=== PATIENT | female | born 1940 | race Caucasian/White ===

== ENCOUNTER 2022-02-16 12:30 | Inpatient (IN) | payer MEDICARE, BC ==
[2022-02-16] MEDS ORDERED: Sodium Chloride 0.9% 10 ML Syringe FLUSH PRN (13:16)
[2022-02-16] MEDS ORDERED: Aspirin 81 MG Tab.Chew PO ONE (13:16)
[2022-02-16] MEDS ORDERED: Acetaminophen 325 MG Tab PO PRN (15:26)
[2022-02-16] MEDS ORDERED: Ondansetron 4 MG Tab.DIS PO PRN (15:26)
[2022-02-16] MEDS ORDERED: oxyCODONE 5 MG Tab PO PRN (15:26)
[2022-02-16] MEDS ORDERED: Sodium Chloride 0.9% 250 ML IV SCH (16:00)
[2022-02-16] MEDS: Pantoprazole 40 MG Vial IVPUSH SCH (17:27)
[2022-02-16] MEDS: Sodium Chloride 0.9% 1,000 ML IV SCH (20:33)
[2022-02-17] MEDS: Pantoprazole 40 MG Vial IVPUSH SCH ×2 (03:53→16:01)
[2022-02-17] MEDS: Sodium Chloride 0.9% 1,000 ML IV SCH ×2 (08:35→20:55)
[2022-02-17] MEDS ORDERED: Isosorbide Mononitrate 20 MG Tablet PO SCH (09:00)
[2022-02-17] MEDS: Furosemide 40 MG Tab PO SCH (09:32)
[2022-02-17] MEDS: Levothyroxine 25 MCG Tab PO SCH (09:32)
[2022-02-17] MEDS: Losartan 50 MG Tab PO SCH (09:32)
[2022-02-17] MEDS ORDERED: Sodium Chloride 0.9% 10 ML Syringe FLUSH PRN ×2 (12:33→12:48)
[2022-02-17] MEDS ORDERED: Iopamidol 755 Mg/ML 100 ML Bottle IVPUSH ONE ×2 (12:33→12:48)
[2022-02-17] MEDS ORDERED: Sodium Chloride 0.9% 100 ML IV SCH ×2 (12:45→13:00)
[2022-02-17] MEDS ORDERED: Scopolamine 1.5 MG Transdermal Patch TOP ONE (13:30)
[2022-02-17] MEDS ORDERED: Metoclopramide 10 MG/2 ML SDV IVPUSH ONE (15:00)
[2022-02-17] MEDS: ISOSORBIDE MONONITRATE 20 MG PO SCH (21:27)
[2022-02-18] MEDS: Pantoprazole 40 MG Vial IVPUSH SCH ×2 (04:03→15:03)
[2022-02-18] MEDS: Levothyroxine 25 MCG Tab PO SCH (05:18)
[2022-02-18] MEDS: Potassium Chloride 10 MEQ in Premix Bag 1 BAG IV SCH ×4 (08:06→12:11)
[2022-02-18] MEDS: Furosemide 40 MG Tab PO SCH (08:06)
[2022-02-18] MEDS: Losartan 50 MG Tab PO SCH (08:21)
[2022-02-18] MEDS: ISOSORBIDE MONONITRATE 20 MG PO SCH ×2 (08:29→22:47)
[2022-02-18] MEDS ORDERED: Sodium Chloride 0.9% 1,000 ML IV SCH (09:45)
[2022-02-18] MEDS: Furosemide 20 MG/2 ML VIAL IVPUSH SCH (14:57)
[2022-02-18] MEDS: Metoprolol Succinate 25 MG Tab.ER PO SCH (20:39)
[2022-02-19] MEDS: Pantoprazole 40 MG Vial IVPUSH SCH ×2 (04:38→15:03)
[2022-02-19] MEDS: Levothyroxine 25 MCG Tab PO SCH ×2 (04:38→06:03)
[2022-02-19] MEDS: Furosemide 20 MG/2 ML VIAL IVPUSH SCH ×2 (05:56→15:03)
[2022-02-19] MEDS: Losartan 50 MG Tab PO SCH (08:02)
[2022-02-19] MEDS: ISOSORBIDE MONONITRATE 20 MG PO SCH ×2 (08:05→21:09)
[2022-02-19] MEDS: Metoprolol Succinate 25 MG Tab.ER PO SCH (21:09)
[2022-02-20] MEDS: Pantoprazole 40 MG Vial IVPUSH SCH ×2 (02:12→14:49)
[2022-02-20] MEDS: Furosemide 20 MG/2 ML VIAL IVPUSH SCH ×2 (06:19→14:48)
[2022-02-20] MEDS: Levothyroxine 25 MCG Tab PO SCH (06:19)
[2022-02-20] MEDS: Losartan 50 MG Tab PO SCH (08:39)
[2022-02-20] MEDS: ISOSORBIDE MONONITRATE 20 MG PO SCH ×2 (08:40→21:41)
[2022-02-20] MEDS: Metoprolol Succinate 25 MG Tab.ER PO SCH (21:40)
[2022-02-21] MEDS: Pantoprazole 40 MG Vial IVPUSH SCH (04:46)
[2022-02-21] MEDS: Levothyroxine 25 MCG Tab PO SCH (06:15)
[2022-02-21] MEDS: Furosemide 20 MG/2 ML VIAL IVPUSH SCH (06:15)
[2022-02-21] MEDS: ISOSORBIDE MONONITRATE 20 MG PO SCH (08:35)
[2022-02-21] MEDS: Losartan 50 MG Tab PO SCH (08:35)
[2022-02-21 12:13] VITALS: BP 103/82; PULSE 73
== END 2022-02-21 13:15 | disposition home or self-care (01) | DRG 378 ==
LOC: JD.ED 12:30 → JD.MS 15:22
PROVIDERS: ADMIT Internal Medicine; ATTEND Internal Medicine
PROC: 30233N1 Transfusion of Nonautologous Red Blood Cells into Peripheral Vein, Percutaneous Approach (ICD-10-PCS; principal; 2022-02-16)
DX: K92.2 Gastrointestinal hemorrhage, unspecified (principal); D64.89 Other specified anemias; R07.9 Chest pain, unspecified; I50.22 Chronic systolic (congestive) heart failure; I10 Essential (primary) hypertension; D50.8 Other iron deficiency anemias; R07.89 Other chest pain; N28.9 Disorder of kidney and ureter, unspecified; E78.00 Pure hypercholesterolemia, unspecified; I11.0 Hypertensive heart disease with heart failure; Z91.030 Bee allergy status; Z79.02 Long term (current) use of antithrombotics/antiplatelets; Z66 Do not resuscitate; K21.9 Gastro-esophageal reflux disease without esophagitis; M81.0 Age-related osteoporosis without current pathological fracture; F41.9 Anxiety disorder, unspecified; Z96.649 Presence of unspecified artificial hip joint; E87.6 Hypokalemia; E03.9 Hypothyroidism, unspecified; E78.5 Hyperlipidemia, unspecified; Z90.49 Acquired absence of other specified parts of digestive tract; I25.2 Old myocardial infarction; Z95.5 Presence of coronary angioplasty implant and graft; Z90.710 Acquired absence of both cervix and uterus; Z79.890 Hormone replacement therapy; Z79.899 Other long term (current) drug therapy
CPT/HCPCS: 36415; 71045; 80053; 82607; 82746; 83540; 83880; 84443; 84466; 84484; 85025; 85379; 86850; 86900; 86901; 86922; 93005; 99285; A9270; J3490; 36430; 71275; 71275-26; 81003; 83735; 85014; 85018; 93010; 93306; 97110-GP; 97162-GP; 99223; 99233; 99239; C9113; J1940; J2916; J3480; J7030; J7050; P9016; Q9967

== ENCOUNTER 2022-03-03 13:19 | Emergency (ER) | payer MEDICARE, BC ==
[2022-03-03] MEDS ORDERED: Sodium Chloride 0.9% 10 ML Syringe FLUSH PRN (13:41)
[2022-03-03] MEDS ORDERED: Sodium Chloride 0.9% 1,000 ML IV STA (14:34)
[2022-03-03] MEDS ORDERED: Ondansetron 4 MG Tab.DIS PO ONE (15:42)
[2022-03-03] MEDS ORDERED: Cefdinir 300 MG Cap PO ONE (15:42)
[2022-03-03 16:31] VITALS: BP 132/77; PULSE 66
== END 2022-03-03 16:31 | disposition home or self-care (01) ==
LOC: JD.ED 13:19
DX: N30.00 Acute cystitis without hematuria (principal); R53.1 Weakness; R11.0 Nausea; E78.00 Pure hypercholesterolemia, unspecified; I10 Essential (primary) hypertension; I25.2 Old myocardial infarction; K21.9 Gastro-esophageal reflux disease without esophagitis; Z91.018 Allergy to other foods; Z91.030 Bee allergy status; Z79.02 Long term (current) use of antithrombotics/antiplatelets; Z79.899 Other long term (current) drug therapy
CPT/HCPCS: 36415; 80053; 81001; 84484; 85025; 86140; 87086; 87088; 87186; 93005; 99283; A9270; J3490; J7030

== ENCOUNTER 2022-03-16 09:13 | Day surgery (SDC) | payer MEDICARE, BC ==
[~2022-03-16 09:13] MED LIST: Lactated Ringers 1,000 ML IV SCH; Lidocaine 1%/Sod Bicarbonate in NS 8.4% 1 ML Syringe IDERM PRN; Sodium Chloride 0.9% 10 ML Syringe FLUSH PRN; Sodium Chloride 0.9% 10 ML Syringe FLUSH SCH
[2022-03-16] MEDS ORDERED: Lidocaine 1% 0 ML ONE (12:11)
[2022-03-16] MEDS ORDERED: Propofol 200 MG/20 ML SDV ONE ×2 (12:11→14:41)
[2022-03-16] MEDS ORDERED: Lidocaine 1% 4 ML ONE (14:41)
[2022-03-16] MEDS ORDERED: ePHEDrine 50 MG/ML SDV ONE (15:23)
[2022-03-16 16:49] VITALS: BP 122/72; PULSE 74
== END 2022-03-16 16:35 | disposition home or self-care (01) ==
LOC: JD.SDS 09:13
PROVIDERS: ATTEND Surgery
DX: K57.30 Diverticulosis of large intestine without perforation or abscess without bleeding (principal); D50.9 Iron deficiency anemia, unspecified; K44.9 Diaphragmatic hernia without obstruction or gangrene; K31.7 Polyp of stomach and duodenum; K29.70 Gastritis, unspecified, without bleeding; K64.9 Unspecified hemorrhoids; I25.10 Atherosclerotic heart disease of native coronary artery without angina pectoris; K21.00 Gastro-esophageal reflux disease with esophagitis, without bleeding; I10 Essential (primary) hypertension; E78.5 Hyperlipidemia, unspecified; Z98.890 Other specified postprocedural states; Z79.899 Other long term (current) drug therapy; Z91.038 Other insect allergy status; Z91.013 Allergy to seafood; Z87.891 Personal history of nicotine dependence
CPT/HCPCS: 36415; 36430; 43239; 45378; 85025; 86850; 86900; 86901; 86922; J2704; J7120; P9016